=== PATIENT | female | born 1930 | race Caucasian/White ===

== ENCOUNTER 2017-10-12 14:43 | Outpatient (CLI) | payer MEDICARE, OTHER ==
--- NOTE | 2017-10-12 19:50 | XRAY Report ---
DATE OF SERVICE: 10/12/2017 TWO VIEW CHEST: 10/12/2017 CLINICAL INDICATION: Abnormal finding on shoulder x-ray of 07/31/2017. Frontal and lateral views of the chest are compared to shoulder films of 07/31/[address] of 06/05/2013. The cardiac silhouette is mildly enlarged. The lungs demonstrate peripheral fibrosis. Postoperative changes in the right chest are stable. There is a new nodular opacity in the left upper lobe laterally. Further evaluation with chest CT is recommended, especially given the patient's history of right lung cancer. No effusion or pneumothorax is evident. IMPRESSION: New nodular opacity in the left upper lobe laterally. Chest CT is recommended for further evaluation. TD: 10/12/2017 20:49
== END 2017-10-12 14:44 | disposition home or self-care (01) ==
LOC: DI 14:43
PROVIDERS: ATTEND Family Medicine
DX: R91.8 Other nonspecific abnormal finding of lung field (principal)
CPT/HCPCS: 71046

== ENCOUNTER 2017-10-14 12:25 | Outpatient (CLI) | payer MEDICARE, OTHER ==
--- NOTE | 2017-10-14 22:17 | CT Report ---
EXAM: CT CHEST EXAM DATE: 10/14/2017 12:41 PM. CLINICAL HISTORY: TAQUERIA NODULE. COMPARISONS: Chest CT 06/05/2013. TECHNIQUE: Routine helical CT imaging was performed through the chest. IV contrast: None. Reconstruct ions: Coronal and sagittal. In accordance with CT protocol optimization, one or more of the following dose reduction techniques w ere utilized for this exam: automated exposure control, adjustment of mA and/or KV based on patient s ize, or use of iterative reconstructive technique. FINDINGS: Lungs/Pleura: Left lateral midlung. Multilobular mass measures 3.9 x 1.9 cm axially and 2.1 cm CC. It is significantly larger, more conspicuous, and masslike compared to the prior exam. Mediastinum: There are calcifications of the coronary arteries. No adenopathy or masses. The heart an d great vessels appear otherwise normal. Bones: Unremarkable. Visualized Abdomen: 10.1 cm low attenuating focus in the left lobe of the liver is nonspecific. It ma y represent a cyst. No bone lesions are seen. IMPRESSION: Left pulmonary mass is now multilobular, larger, more conspicuous, and more masslike comp ared to the prior exam. Recommend tissue diagnosis. [facility] Referring Provider Line: [phone] SITE ID: [id number]
== END 2017-10-14 12:26 | disposition home or self-care (01) ==
LOC: DI 12:25
PROVIDERS: ATTEND Family Medicine
DX: R91.1 Solitary pulmonary nodule (principal); Z85.118 Personal history of other malignant neoplasm of bronchus and lung
CPT/HCPCS: 71250

== ENCOUNTER 2018-10-05 17:38 | Outpatient (CLI) | payer MEDICARE, OTHER ==
--- NOTE | 2018-10-05 18:09 | CONSULTATION NOTE ---
Palliative Care Follow Up - Referral Referring Provider: Dr Solorzano Time of Visit: 10/05/2018 Referral setting: Home (Seen in home setting due to taxing and considerable effort required to leave the home due to debility and grief from recent loss. The patient has been homebound for several decades, according to her son) Referral Reason: Dementia, debility - Information Sources Records reviewed: Previous records reviewed History/Review of Systems obtained from: Patient, Family Exam limitations: Clinical condition (dementia, short term memory deficits) - History of Present Illness Update Brief HPI Update: 87-year-old female with confusion from dementia, in mourning for of 70 years who Aug 27 on Hospice. She lives alone and is isolated and dependent on son, Lauri, who stays with her on Monday and Monday. He lives in [place] Medical history: Early dementia, depression, COPD, HTN, HLD, hypothryoisidm, GERD, Diabetes Mellitus II (unaware of diagnosis, no meds), history of R lung cancer. Today was a joint visit with Palliative Care respite worker, to discuss support services for the patient. Patient answered the door, looking very confused. She didn't remember me from my prior visit. She has significant short-term memory loss and answers to most questions are "I don't know," or "I don't remember." She has no idea which day of the week it is. But she knows her son comes on Monday and Saturdays, and that he is here right now. Her son states she remains isolated in the home, and has pretty much been restricted to the home for the past 20-30 years. According to him, she only went out to the commissary and then straight back home. respite worker and I tried to ascertain which services would be useful for the patient, who spends most of her time alone and home, and is completely dependent on her son for everything: shopping, food, errands, medications, bills, finances, etc. She has a hard time following the conversation, and seems overwhelmed at new people being in her home. She does have a mind of her own, and when Meals on Wheels is proposed as a service that might help her, she is very consistent in not wanting it. She also isn't interested in Paratransit to get around town. But in fact, she wouldn't be able to use the service, because she would not be capable of navigating or knowing where she is going. She is mourning the loss of her and becomes teary eyed when speaking about it. Lauri, her son, had requested volunteers to help keep the patient company during the day, and the Palliative Care volunteer, Natalie Saldivar, had an initial meeting today with Lauri, and will come again on Monday. The patient herself didn't remember this meeting, but is aware that a lot of new people have been coming in to her home, and she doesn't really like it. respite worker proposed a new service for this family, one that can provide 20ho urs caregiving a month. It was proposed to the son, and after objections and some push back, he actually ended up agreeing with trying it out. He also reiterated that she gets welfare checks 6x/week in the evenings from their scrap metal processing worker. Also he signed up for [employer] 17/04, a similar service to [facility], with an emergency call button the patient can wear around her neck. It is uncertain wh ether cognitively she will actually be able to use it, but they are going to give it a try. Patient is visibly short of breath but denies, and reports she uses no inhalers / respiratory medications. She has a nebulizer that she doesn't want to use and they are trying to return it. Social History - Living Situation Living arrangement: At home Living Situation: Alone Support System: 70 years, her 08/27/2018 on Hospice. Patient has 3 sons, apparently 2 are not in close touch. The eldest lives in [place], another lives in [facility]. Lauri, the youngest, lives on the [place]. Lauri is the financial and medical DPOA. He stays with her most Fridays and Saturdays. Medications/Allergies - Medications Home Medications: Ambulatory Orders Medication Instructions Recorded Confirmed Ipratropium/Albuterol [Combivent 1 puffs IH QID 11/18/13 09/14/18 Respimat] Ipratropium/Albuterol [Duoneb] 3 ml INH DAILY 11/18/13 09/14/18 Levothyroxine Sodium [Synthroid] 100 mcg PO DAILY 11/18/13 09/14/18 Losartan [Cozaar] 50 mg PO DAILY 11/18/13 09/14/18 Montelukast Sodium [Singulair] 10 mg PO DAILY 11/18/13 09/14/18 Simvastatin 40 mg PO DAILY 11/18/13 09/14/18 Benzonatate 100 mg PO TID PRN 09/14/18 09/14/18 traZODone [Desyrel] 50 mg PO .QHS 09/14/18 09/14/18 - Allergies Allergies/Adverse Reactions: Allergies Allergy/AdvReac Type Severity Reaction Status Date / Time Sulfa (Sulfonamide Allergy Unknown Verified 02/22/14 14:20 Antibiotics) Review of Systems - Constitutional Constitutional: reports: Poor appetite, Weight stable (about 120 lbs per report of patient, but no scale in the house) - Eyes Eyes: reports: Vision loss, Corrective lenses - Ears, Nose & Throat Ears, Nose & Throat: reports: Hearing loss, Hearing aids, Dentures (upper and lower) - Cardiovascular Cardiovascular: reports: Exertional dyspnea, Decr. exercise tolerance. denies: Chest pain, Edema - Respiratory Respiratory: reports: Cough (chronic, for years) - Gastrointestinal Gastrointestinal: reports: Constipation, Poor appetite - Genitourinary Genitourinary: denies: Dysuria, Frequency, Incontinence - Musculoskeletal Musculoskeletal: denies: Muscle pain, Back pain, Assistive devices, Transfer issues - Neurological Neurological: reports: Memory problems - Psychiatric Psychiatric: reports: Depression Physical Exam - Vital Signs Temperature: 96.9 F Pulse Rate: 71 O2 Saturation: 96 (room air) Blood Pressure: 141/91 - Physical Exam General Appearance: positive: Alert, Mild distress Eyes Bilateral: positive: No lid inflammation, Conjunctivae nml, No scleral icterus Neck: positive: No JVD, Trachea midline Cardiovascular: positive: Regular rate & rhythm, No murmur Respiratory: positive: No respiratory distress, Diminished throughout. negative: Wheezes, Rales Skin: positive: No symptoms Extremities: positive: No pedal edema Neurologic/Psychiatric: positive: Mood/affect nml, Disoriented to time Palliative Care - POLST Patient has POLST: Yes POLST Status: DNR, Comfort Measures Performance Status: Ambulatory, self transfers without difficulty FAST scale 4, possibly 5 Significant short-term memory deficits No cooking, likely poor eating habits, vague about what foods she eats Son brings her bags of doughnuts Housebound, son reports she has been for 20-30 years Son took carkeys away, so she is not driving anymore Won't say how often she showers; her hair is disheveled - Palliative Care Discussion: Son has a very poor understanding of her condition; he says she is cognitively good, just has a poor memory. He doesn't seem to notice her confusion about everything, and feels she gets along fine. He pushes back on most suggestions or recommendations, but then seems to go with it. He ended up signing up for a [employer] service -- with emergency notification. (though it's uncertain the patient will be capable of working with this. But he is entirely against assisted living. He insists she can manage at home, she just needs some company for companionship. He is agreeable to the volunteer coming as often as she can. He is agreeable to working with SW to apply for the caregiver service. (20 hours per month) Patient now has a very low monthly income, but still has savings that the son is managing. As such, she won't qualify for [employer]. Impression and Recommendations - Palliative Care Impression: 87-year-old female with dementia and significant short term memory deficits and confusion, in mourning for of 70 years who Aug 27 on Hospice. She lives alone and is socially isolated. Her son lives in the [place] area and stays with her on Fridays and Saturdays. She is a vulnerable elder and at risk living alone. Palliative Care SW is now working with this family to obtain resources and support. Palliative Care Volunteer Natalie Saldivar has met with the family and will start regular visits next week. [facility] will continue to provide ongoing support and oversight. Recommendations/Counseling Done: Dementia with depression: Significant short term memory deficits and confusion. Dr Solorzano confirmed continuing the citalopram 10mg. In mourning for recent of . Hospice grief counselor is providing support. Chest CT revealing lung mass: Chest CXR and chest CT of September 2017 show enlarging L pulmonary mass, recommend tissue diagnosis. Patient knew nothing about it, son didn't either but he admits he hadn't been involved in his parents' health affairs a year ago. PCP clinic had referred the patient to [facility] back in September or October, perhaps patient ignored the calls or there was no follow-through. Follow up at next visit to confirm patient's goals. She has previously stated she wants comfort care. COPD: At baseline SOA. Patient reports not using her inhalers (Combivent). Also she is trying to return the nebulizer that she declines to use. Advance care planning: Joint visit with Social Work today to coordinate resources and support for patient and family. Patient declines Meals on Wheels. She also doesn't need Paratransit -- she has been housebound for 20-30 years, according to her son. Son agrees to apply for caregiver program (20hrs/month), and SW will follow up with the application. Son has signed up for [employer] monitoring service, it's unclear if patient has the capability of using it. Volunteer Natalie Saldivar has met with patient and son and will start regular visits on Monday. bakery worker does welfare checks 6 evenings a week. Follow up . Time Spent: 50 minutes were spent with more than 50% of the time spent in counseling, education, and coordination of care.
== END 2018-10-05 17:39 | disposition home or self-care (01) ==
LOC: PC 17:38
PROVIDERS: ATTEND Nurse Practitioner
DX: Z51.5 Encounter for palliative care (principal); F03.90 Unspecified dementia, unspecified severity, without behavioral disturbance, psychotic disturbance, mood disturbance, and anxiety; F32.9 Major depressive disorder, single episode, unspecified; J44.9 Chronic obstructive pulmonary disease, unspecified; I10 Essential (primary) hypertension; E78.5 Hyperlipidemia, unspecified; E03.9 Hypothyroidism, unspecified; K21.9 Gastro-esophageal reflux disease without esophagitis; E11.9 Type 2 diabetes mellitus without complications; R91.8 Other nonspecific abnormal finding of lung field; Z85.118 Personal history of other malignant neoplasm of bronchus and lung; H54.7 Unspecified visual loss; H91.90 Unspecified hearing loss, unspecified ear; Z66 Do not resuscitate; Z75.0 Medical services not available in home
CPT/HCPCS: 99349

== ENCOUNTER 2018-11-09 12:30 | Outpatient (CLI) | payer MEDICARE, OTHER ==
--- NOTE | 2018-11-09 20:10 | CONSULTATION NOTE ---
Palliative Care Follow Up - Referral Referring Provider: Dr Solorzano Time of Visit: Monday11/09/2018. 12:30 - 13:50 Referral setting: Home (Seen in home setting due to taxing and considerable effort required to leave the home due to debility and chronic SOA from COPD and undiagnosed lung mass.) - Information Sources Records reviewed: Previous records reviewed History/Review of Systems obtained from: Patient, Family, Other (Palliative Care Volunteer) Exam limitations: Clinical condition (Short term memory deficits, unreliable historian) - History of Present Illness Update Brief HPI Update: Face to Face for RN for Medication teaching and management. Patient is living isolated and alone, home-bound due to chronic SOA from COPD and undiagnosed growing lung mass. She has moderate dementia and memory issues with lack of full understanding and compliance with medications. She would benefit from RN evaluation, education and oversight on medicine administration with goal of helping her organize her medications and take them properly, with ongoing aid from family, volunteer, and (hopefully) caregivers. 88-year-old female with short-term memory deficits and moderate dementia, lost of 70 years two months ago; he was on Hospice. She lives alone and is socially isolated and dependent on son, Lauri, who lives in [place] and tries to visit her weekly. Medical history: Early dementia, depression, COPD, HTN, HLD, hypothyroidism; GERD; Diabetes Mellitus II (unaware of diagnosis, no meds); history of R lung cancer; CXR and CT from September 2017 indicating L pulmonary multi-lobular mass that has grown since a previous exam. Lauri was not able to visit the patient last weekend due to the severe winter weather conditions in the region. Palliative Care volunteer Natalie Saldivar helped out frequently, including doing some shoveling of snow, grocery shopping, and having her fix the TV in patient's bedroom (cables were not properly connected). Patient was very grateful for the help and support and appears to be developing a beneficial connection with Natalie. It appears to be a good match. Natalie is in frequent email communication with son Lauri, something for which he is appreciative. Patient does remember me today. We discussed signing a [facility] release form so Palliative Care SHAREHOLDER can inquire/receive updates on the status of the TSOA Program through [place] [facility] ([facility] Supports for Older Adults). This program can provide up to $550/month of support in form of caregiving for clients Long discussion/explanation what the release form is for, Lauri understands and agreed with his mother signing it, and patient signed. Natalie, the volunteer had noted in her past visit that patient has not been taking medications correctly. She has two full bottles (levothyroxine and montelukast) dating from 07/2017. Patient is confused and insists she has been taking all the pills daily. She believes someone must have switched the pills into the incorrect pills. Long discussion about bringing in Home Health to provide education and management of medications and help patient develop a system to organize her meds to ensure she is taking them as directed. Son is supportive, patient seems skeptical but does agree. Also long discussion regarding the chest xray and CT of September 2017, indicating an enlarging L pumonary mass that had grown compared to the prior exam. Tissue diagnosis was recommended by radiology. Patient was surprised, saying she had never heard of this. Son agreed. We had discussed it at my initial visit, but neither recalled this. Patient denies SOA, but her breathing is audible. Natalie found the patient out of breath at one visit because she was attempting to vacuum the entire house. Today she admits she doesn't clean the house like she used to. Patient did not use supplemental oxygen and returned it to [facility]. She does have a nebulizer, says she uses it "occasionally." Social History - Living Situation Living arrangement: At home Living Situation: Alone Support System: 70 years, her 08/27/2018 on Hospice. Patient has 3 sons, apparently 2 are not in close touch. The eldest lives in [place], another lives in [facility]. Lauri, the youngest, is the financial and medical DPOA, lives in [place] and travels to stay with her most Fridays. Natalie Janna is a palliative care volunteer who is visiting weekly and often more, particularly this past week with the extreme snow conditions. Medications/Allergies - Medications Home Medications: Ambulatory Orders Medication Instructions Recorded Confirmed Ipratropium/Albuterol [Combivent 1 puffs IH QID 11/18/13 11/09/18 Respimat] Ipratropium/Albuterol [Duoneb] 3 ml INH DAILY 11/18/13 11/09/18 Levothyroxine Sodium [Synthroid] 100 mcg PO DAILY 11/18/13 11/09/18 Losartan [Cozaar] 50 mg PO DAILY 11/18/13 11/09/18 Montelukast Sodium [Singulair] 10 mg PO DAILY 11/18/13 11/09/18 Simvastatin 40 mg PO DAILY 11/18/13 11/09/18 Benzonatate 100 mg PO TID PRN 09/14/18 11/09/18 traZODone [Desyrel] 50 mg PO .QHS 09/14/18 11/09/18 Citalopram [CeleXA] 10 mg PO DAILY 11/09/18 11/09/18 - Allergies Allergies/Adverse Reactions: Allergies Allergy/AdvReac Type Severity Reaction Status Date / Time Sulfa (Sulfonamide Allergy Unknown Verified 02/22/14 14:20 Antibiotics) Review of Systems - Constitutional Constitutional: reports: Poor appetite. denies: Fatigue, Fever, Chills, Malaise, Weakness - Eyes Eyes: reports: Vision loss, Corrective lenses - Ears, Nose & Throat Ears, Nose & Throat: reports: Hearing loss, Hearing aids, Dentures (upper and lower) - Cardiovascular Cardiovascular: reports: Exertional dyspnea, Decr. exercise tolerance - Respiratory Respiratory: reports: Cough (chronic x years). denies: SOB at rest - Gastrointestinal Gastrointestinal: reports: Poor appetite. denies: Constipation - Musculoskeletal Musculoskeletal: denies: Muscle pain, Back pain, Assistive devices, Transfer issues - Neurological Neurological: reports: Memory problems - Psychiatric Psychiatric: reports: Depression Physical Exam - Physical Exam General Appearance: positive: No acute distress, Alert Eyes Bilateral: positive: EOMI, No lid inflammation, Conjunctivae nml, No scleral icterus ENT: positive: No signs of dehydration Neck: positive: No JVD Cardiovascular: positive: Regular rate & rhythm, No murmur Respiratory: positive: Chest non-tender, No respiratory distress, Diminished throughout Skin: positive: No symptoms Extremities: positive: No pedal edema Neurologic/Psychiatric: positive: Mood/affect nml, Disoriented to time Palliative Care - POLST Patient has POLST: Yes POLST Status: DNR, Comfort Measures Pain: No pain Depression: Moderate (4-6) (normal bereavement) Dyspnea: Mild (1-3) Anorexia: Moderate (4-6) Performance Status: Ambulatory, self transfers without difficulty FAST scale 5 Significant short-term memory deficits No cooking, nearly empty fridge, poor eating habits Son brings her bags of doughnuts Natalie Saldivar has shopped for her, brings TV dinners No longer driving Housebound x years - Palliative Care Discussion: Both son and patient said they weren't aware of the September [address] of the L lung mass, recommending a biopsy. They also both said they did not recall that we talked about it at my first visit. Dr Mclaughlin told me his clinic referred her to [facility] in Sep or Oct [address] [facility] should have followed up with her. At that time, her was still alive and they were dealing with his medical issues, it likely got lost in the shuffle. Today patient was distressed, said she felt overwhelmed by the news she may have cancer. She denied ever having cancer; son reminded her that she has had breast cancer. He wasn't aware of a lung cancer; medical records mention it. Unclear if this is correct or not. We had long discussion of goals of care, and whether patient wants to follow up with biopsy. We discussed benefits and burdens of doing a work up, and whether she would be a candidate for a biopsy, what would she want to do in the case of a cancer diagnosis. Lauri pointed out that logistically pursing a work up and/or treatment would be challenging given her isolation, inability to drive, his work schedule. We discussed paratransit. Also SW can help with volunteer ready mix truck driver programs The patient felt very overwhelmed about the word cancer. I offered reassurance, that she can think about it and discuss it with Lauri, that whatever her choice is, pursuing work up, or electing not to, palliative care will support her through this. Lauri reiterates that he doesn't think assisted living would work for his mother, she is very settled in her home and moving would be traumatic. But she does need company. We discussed her isolation, and that it is lonely (and risky) staying alone /, week after week, he did agree. We inspected her fridge, which has very little food in it. Lauri says he throws out most of what he buys her because she doesn't use it. She does have frozen TV dinners provided by Natalie the volunteer. He does buy her a bag a doughnuts. We discussed the risk of malnutrition, considering what's in her fridge and what she tends to eat (doughnuts). I pointed out that at assisted living has the advantage of serving 3 meals daily. Meals on Wheels has been presented by SHAREHOLDER, the patient rejected that idea. However, she has been more open to that idea after Natalie spoke about it. Lauri may be too. Lauri had forgotten about the TSOA program that SW had recommended to him, but was agreeable once I reminded him, and so he advised his mother to sign the rele ase form permitting [facility] to share information with palliative care SW. Impression and Recommendations - Palliative Care Impression: 88-year-old female with dementia and significant short term memory deficits and confusion, now living solo for first time in 70 years, since her in August. She is vulnerable and isolated, and is very reliant on her son who visits weekly. Her other two sons are minimally involved. Patient had CT scan a year ago indicating L pulmonary mass, she (and son) don't recall ever hearing about this, are currently undecided whether to pursue biopsy, work up, treatment. Patient has a volunteer from the Palliative Care group who has been offering invaluable support, particularly during the recent severe winter weather when her son was unable to come. Palliative Care SW will follow up on TSOA program application, and Palliative Care team will continue to provide ongoing support a nd oversight. Recommendations/Counseling Done: Dementia with depression: Continue Citalopram 10mg. Palliative Care volunteer Natalie Saldivar providing invaluable social and logistical support. Patient is vulnerable living at home in a socially isolated situation, completely dependent on her son who lives [place]. She is still in bereavement after losing her of 70 years two months ago. I am referring her to HH RN for medication education and management for help and support with getting a system to effectively manage her medications. Lauri has the [employer] / service (after some glitches in getting started), and is working with the [employer] to set it up for the patient to wear around her neck. It's similar to [employer]. lineworker continues to make welfare checks 5 afternoons/evenings a week. Chest CT revealing lung mass: Chest CXR and chest CT of September 2017 revealed e nlarging L pulmonary mass, and recommended a tissue diagnosis. Neither patient or son recall this, nor talking about it at my initial visit in August 2018. PCP clinic had referred the patient to [facility] back in September or October 2017, and either [facility] didn't follow through, or patient ignored/didn't get the calls. We discussed options today; patient was overwhelmed, unable to process. Son also admits feeling overwhelmed, having "too much on his plate." Palliative Care will follow up with son and also revisit with patient to explore what she's feeling and what she wants. Patient has difficulty expressing thoughts and often (literally) throws up her hands. COPD: Chronic SOA. Patient does not use inhalers. She returned the oxygen to [facility]. She has a nebulizer that she says she uses "sometimes." Apparently she has not used the montelukast (the current bottle is 90 tablets, or 30 days' supply, is full or nearly full, and is dated Jul 2017). I wrote a new script: montelukast 10mg daily. Patient is using benzonatate daily for her chronic cough. Hypothyroidism: She has a full bottle (around 90 pills, or 3 months supply) of levothyroxine dated from July 2017. I wrote a new script: levothyroxine 100mcg 1 tab daily. Her son will fill it at the pharmacy and will throw out the old bottle and tablets -- along with the montelukast tablets and bottle. Advance care planning: POLST is DNR and comfort care. Patient has expressed in the past she wants no medical intervention for prolongation of life. However, today she was reminded of the CT showing a lung mass. She didn't recall ever hearing this before, or the possibility of a cancer diagnosis. We discussed, as best we could under the circumstances, goals of care. She feels overwhelmed, unable to process or decide whether she is willing to go in for workup and tests at this time. We will follow up at a future visit. Will follow up with son. SW will follow up with [facility] regarding TSOA program application for caregiver support. Currently son wants patient to remain in home, he is not considering transferring her to assisted living, but may be amenable as time goes on. This past week when he couldn't make it to see his mother and had to depend on the Palliative Care volunteer for help, caused him to realize his mother's vulnerability living all alone. Also they may be more open to considering getting on board with meals on wheels. Time Spent: 60 minutes were spent with more than 50% of the time spent in counseling, education, providing anticipatory guidance and coordination of care.
== END 2018-11-09 12:31 | disposition home or self-care (01) ==
LOC: PC 12:30
PROVIDERS: ATTEND Nurse Practitioner
DX: Z51.5 Encounter for palliative care (principal); F03.90 Unspecified dementia, unspecified severity, without behavioral disturbance, psychotic disturbance, mood disturbance, and anxiety; F32.9 Major depressive disorder, single episode, unspecified; J44.9 Chronic obstructive pulmonary disease, unspecified; E03.9 Hypothyroidism, unspecified; T48.6X6A Underdosing of antiasthmatics, initial encounter; T38.1X6A Underdosing of thyroid hormones and substitutes, initial encounter; Z91.130 Patient's unintentional underdosing of medication regimen due to age-related debility; R91.8 Other nonspecific abnormal finding of lung field; I10 Essential (primary) hypertension; E11.9 Type 2 diabetes mellitus without complications; Z60.2 Problems related to living alone; Z63.4 Disappearance and death of family member; Z66 Do not resuscitate; Z85.3 Personal history of malignant neoplasm of breast; Z79.899 Other long term (current) drug therapy
CPT/HCPCS: 99350

== ENCOUNTER 2019-04-10 11:35 | Outpatient (CLI) | payer MEDICARE, OTHER ==
--- NOTE | 2019-04-10 18:58 | CONSULTATION NOTE ---
Palliative Care Follow Up - Referral Referring Provider: Dr Solorzano Time of Visit: Mon04/10/2019. 11:35 - 12:10 Referral setting: Home Referral Reason: COPD, SOA - Information Sources Records reviewed: Previous records reviewed History/Review of Systems obtained from: Patient, Family Exam limitations: Clinical condition (Memory deficits, poor historian) - History of Present Illness Update Brief HPI Update: 88-year-old female with short-term memory deficits and moderate dementia, lost of 70 years in August; he was on Hospice. She lives alone and is socially isolated and dependent on son, Lauri, who lives in [place] and visits her on most weekends. She also has Palliative Care volunteer support. Medical history: Early dementia, depression, COPD, HTN, HLD, hypothyroidism; GERD; Diabetes Mellitus II (unaware of diagnosis, no meds); history of R lung cancer; CXR and CT from September 2017 indicating L pulmonary multi-lobular mass that has grown since a previous exam. Patient is pleasant and alert, states she remembers me. Patient states she is doing well, and she has no complaints. Patient sounds short of breath, but denies this, which is consistent with previous DIRECTOR SALES visits. Patient has a nebulizer next to the recliner where she sits, along with a box of DuoNebs ampules. She says she doesn't use it and doesn't feel she needs to use it. DIRECTOR SALES asked if it was ok to check whether it works. DIRECTOR SALES turned it on and with the assistance of the patient, filled the receptacle. The nebulizer functioned properly, and the patient demonstrated that she knows how to empty the ampule into the receptacle and use the mouthpiece. She was noncommital about using it in the future. DIRECTOR SALES did provide education about using it up to 4x day if she feels short of breath. DIRECTOR SALES conducted a medicine reconciliation. Patient brought out all her medications and reports she uses them every day. Losartan is missing, DIRECTOR SALES will follow up with PCP to confirm if it's been discontinued or needs refilling. Patient has two medication bottles that date from 2016 (levothyroxine and rashard ukast), and that contain tablets, but she is consistent is reporting she takes her medications, including these two, daily. She also has benzonate which is PRN TID. She reports taking it once a day. DIRECTOR SALES provided education on its use as needed for symptomatic relief of her coughing. Patient has two palliative care volunteers, they take turns visiting her weekly. When asked about their visits she says they come every once in awhile and does not provide other details or comments. If follow up questions are asked, patient becomes vague and tends to shrug and say she doesn't know. Did remind the patient of the CT scan in September 2017 that shows a L lung mass that has grown. Patient has no recollection of our previous conversation regarding the scan and the lung mass, and doesn't remember having the scan done or being told she has a lung mass. See Palliative Care discussion. Social History - Living Situation Living arrangement: At home Support System: just short of 70 years, her 08/27/2018 on Hospice. Patient has 3 sons, apparently 2 are not in close touch. The eldest lives in [place], another lives in [facility]. Lauri, the youngest, is the financial and medical DPOA, lives in [place]. He had consistently been visiting every weekend. With a change in work schedule he reports that he is not coming every weekend, he needs to take care of some personal business. Patient has two palliative care volunteers who take turns visiting weekly. Patient does not use transport, paratransport, or taxis. Medications/Allergies - Medications Home Medications: Ambulatory Orders Medication Instructions Recorded Confirmed Ipratropium/Albuterol [Combivent 1 puffs IH QID 11/18/13 04/11/19 Respimat] Ipratropium/Albuterol [Duoneb] 3 ml INH DAILY 11/18/13 04/11/19 Levothyroxine Sodium [Synthroid] 100 mcg PO DAILY 11/18/13 04/11/19 Losartan [Cozaar] 50 mg PO DAILY 11/18/13 04/11/19 Montelukast Sodium [Singulair] 10 mg PO DAILY 11/18/13 04/11/19 Simvastatin 40 mg PO DAILY 11/18/13 04/11/19 Benzonatate 100 mg PO TID PRN 09/14/18 04/11/19 traZODone [Desyrel] 50 mg PO .QHS 09/14/18 04/11/19 - Allergies Allergies/Adverse Reactions: Allergies Allergy/AdvReac Type Severity Reaction Status Date / Time Sulfa (Sulfonamide Allergy Unknown Verified 02/22/14 14:20 Antibiotics) Review of Systems - Constitutional Constitutional: reports: Poor appetite, Weight loss (Weight unknown. She appears thinner. Son shops for her, likes to bring her bags of donuts. Volunteers have also shopped for her.) - Eyes Eyes: reports: Vision loss, Corrective lenses - Ears, Nose & Throat Ears, Nose & Throat: reports: Hearing loss, Hearing aids, Dentures (upper and lower) - Cardiovascular Cardiovascular: reports: Exertional dyspnea, Decr. exercise tolerance. denies: Palpitations, Chest pain, Edema - Respiratory Respiratory: reports: Cough (chronic x years). denies: SOB at rest, SOB with exertion - Gastrointestinal Gastrointestinal: reports: Poor appetite. denies: Constipation - Genitourinary Genitourinary: denies: Dysuria - Musculoskeletal Musculoskeletal: denies: Muscle pain, Back pain, Assistive devices, Transfer issues - Integumentary Integumentary: reports: Dryness - Neurological Neurological: reports: Memory problems - Psychiatric Psychiatric: reports: Other (Patient denies depression and anxeity) - Endocrine Endocrine: reports: Hypothyroidism Physical Exam - Vital Signs Temperature: 97.4 F Pulse Rate: 81 O2 Saturation: 99 (room air) Blood Pressure: 163/94 (wrist cuff) - Physical Exam General Appearance: positive: No acute distress, Alert Eyes Bilateral: positive: No lid inflammation, Conjunctivae nml, No scleral icterus ENT: positive: No signs of dehydration. negative: Purulent nasal drainage Neck: positive: Trachea midline Cardiovascular: positive: Regular rate & rhythm, No murmur Respiratory: positive: Chest non-tender, No respiratory distress, Diminished in bases (Right side diminished; left side normal), Other (chronic, audible breath sounds with effort but denies feeling short of breath) Skin: positive: Dryness Extremities: positive: Nml appearance, No pedal edema Neurologic/Psychiatric: positive: Oriented x3, Mood/affect nml Palliative Care - POLST Patient has POLST: Yes POLST Status: DNR, Comfort Measures Pain: No pain Tiredness/Fatigue: None Drowsiness/Sedation: None Nausea: None Depression: None Anxiety: None Dyspnea: None Anorexia: Moderate (4-6) Sleep: Sleeps well, Other (goes to bed at 9pm watches TV, goes to sleep after midnight, gets up around 9-9:30am) Constipation: No Feelings of wellbeing/Perceived Quality of Life: Good Performance Status: Ambulatory, self transfers without difficulty Revise her FAST scale to between 4 and 5 Significant short-term memory deficits No longer driving House bound by choice x years - Palliative Care Discussion: When asked how she is doing and how things are, she shrugs and says it's going as well as it can. She thinks she's adjusting to the loss of her , but admits it is hard. They were 69 years. Volunteers have reported that patient has talked about 's and wondered how he . I spoke about his being with hospice and having dementia and eventually passing from that. She did not ask or inquire further. When asked if she remembered working with our bereavement counsellor, she does, but she doesn't think she needs further support. Discussed chest xray CT of September 2017 that indicated a growing L lung mass. Patient says she does not remember talking about it at the previous palliative care visits, nor does she recall getting the scans or being told about the lung mass back in 2018. Discussed that further tests would be needed to determine whether the mass is cancer, and patient shrugged, stated she was not interested in pursuing this and having to find transport to medical appointments. She doesn't leave the house much and doesn't have transport to get around unless her son is here and he is unable to come during the week, only on weekends. He has said she wouldn't want to spend the money on a taxi, and that is indeed what she indicates today. Lauri said she has declined using [employer] Wheels because of the $6 cost. Spoke with patient's son prior to this visit who felt that his mother would not want to pursue further medical diagnostics/treatments due to logistical difficulties but also due to not wanting to try to prolong her life. She has indicated to him that she would want to join her . Lauri feels the patient is managing well living on her own and that the volunteer visits do help keep her from being isolated and also provide some monitoring. In addition the fan mail clerk checks on her most days. Patient no longer drives; Lauri took her keys. Impression and Recommendations - Palliative Care Impression: 88-year-old female with mild to moderate dementia and short term memory deficits, lives independently in her house since being in August. [place], meals, errands, and functional tasks. She also has weekly visits from two Palliative Care volunteers. Patient has an undiagnosed L lung mass and declines further workup. She has chronic SOA but denies discomfort, is not compliant with medications. Palliative Care will continue to offer support as needed. Recommendations/Counseling Done: Dementia with depression: Patient denies depression. She previously had Citalopram 10mg on her med list, but does not have any tablets or bottles of it, and says she doesn't know about it. Faxed to Dr Solorzano mentioning she doesn't have this medication, along with some others. Palliative Care volunteers continue to provide invaluable social and logistical support. Chest CT revealing lung mass: Chest CXR and chest CT of September 2017 revealed enlarging L pulmonary mass, and recommended a tissue diagnosis. Patient doesn't recall this, nor previous conversations with palliative care about this. She states today she does not want to pursue any further work up or go to medical appointments. Neither patient or son recall this, nor talking about it at previous palliative care visits. PCP clinic had referred the patient to [facility] back in September or October 2017, and either [facility] didn't follow through, or patient ignored/didn't get the calls. We discussed options today; patient was overwhelmed, unable to process. Son also admits feeling overwhelmed, having "too much on his plate." Palliative Care will follow up with son and also revisit with patient to explore what she's feeling and what she wants. Patient has difficulty expressing thoughts and often (literally) throws up her hands. COPD: Patient denies chronic SOA; she does have audible breath sounds and mildy labored breathing. She has told volunteers that she is "used to" her breathing and chronic cough. Patient does not use inhalers and didn't have any included in her supply of medications. She has previously returned the oxygen to [facility]. She has a nebulizer that is on the table next to her recliner where she watches TV. She has a good supply of Duonebs, and she was able to demonstrate that she knows how to empty the ampule in it, turn it on and use the breather. But she reports not using it. She is non-adherent with her montelukast, since the container dates from Jul 2017. DIRECTOR SALES wrote a new script at a previous visit, but it wasn't filled since this is the same pill container. Patient appears functional, she ambulates around the house, does admit to volunteers that she no longer vacuums as often as she used to. Patient has benzonatate and takes one capsule daily for her chronic cough. Did provide education that it's for symptom control and she can use it up to 3x daily. HTN: Today her BP is 163/94. Patient is missing losartan 50mg daily from her supply of medicines, is not able to answer if it was discontinued by her PCP. Faxed Dr Solorzano to inquire about it. Hypothyroidism: Patient is non-adherent. She still has the container dating from Jul 2017 with a good supply of tablets, maybe with less than what was in the container at the last palliative care visit. Back in October DIRECTOR SALES had written a new levothyroxine script that her son said he would fill and would throw out the old container and tablets. Advance care planning: POLST is DNR and comfort care. Patient does not want to follow up on the September 2017 CT showing a lung mass. She doesn't remember discussing this before with Palliative Care, and doesn't recall getting the CT originally. Son considers the patient is doing well in her own home, with weekly volunteers for company, plus the collection systems worker who checks on her almost daily. Patient is vulnerable, but seems to be managing well at her current level of functioning. She is non-adherent but her lung disease is not adversely affecting her quality of life at this time. Patient appears to be coping with widowhood and the loss of her , has declined bereavement support. She has preciously spoken with her volunteers about not knowing how her . Palliative Care DIRECTOR SALES spoke about this being from dementia, and that he was on Hospice for his end of life. Patient didn't have ask any questions or make comments on this, and may not recall the conversation and therefore continue to question how he . Palliative Care will continue to provide support for the patient and her son, and periodic monitoring. Time Spent: 35 minutes were spent with more than 50% of the time spent in counseling, education, and coordination of care with son.
== END 2019-04-10 11:36 | disposition home or self-care (01) ==
LOC: PC 11:35
PROVIDERS: ATTEND Nurse Practitioner
DX: Z51.5 Encounter for palliative care (principal); F03.90 Unspecified dementia, unspecified severity, without behavioral disturbance, psychotic disturbance, mood disturbance, and anxiety; F32.9 Major depressive disorder, single episode, unspecified; R91.8 Other nonspecific abnormal finding of lung field; J44.9 Chronic obstructive pulmonary disease, unspecified; T48 Poisoning by, adverse effect of and underdosing of agents primarily acting on smooth and skeletal muscles and the respiratory system; E03.9 Hypothyroidism, unspecified; T38.1X6A Underdosing of thyroid hormones and substitutes, initial encounter; Z91.128 Patient's intentional underdosing of medication regimen for other reason; Z85.118 Personal history of other malignant neoplasm of bronchus and lung; Z79.899 Other long term (current) drug therapy; Z66 Do not resuscitate; Z60.2 Problems related to living alone; Z63.4 Disappearance and death of family member
CPT/HCPCS: 99348